=== PATIENT | male | born 1990 | race Hispanic/Latino ===

== ENCOUNTER 2019-01-30 15:30 | Inpatient (IN) | payer MEDICAID ==
[~2019-01-30] VITALS: Ht 165.1 cm; Wt 53.3 kg
[2019-01-30 16:24] LABS: BASOPHILS % (AUTO) 1.5 % (0.0-5.0); EOSINOPHILS % (AUTO) 1.9 % (0.0-8.0); HEMATOCRIT 37.8 % (42-54); LYMPHOCYTES % (AUTO) 22.2 % (21.0-51.0); MEAN CORPUSCULAR HEMOGLOBIN 28.3 pg (27.0-33.0); MEAN CORPUSCULAR HGB CONC 32.2 g/dL (32.0-36.0); MONOCYTES % (AUTO) 10.3 % (3.0-13.0); NEUTROPHILS % (AUTO) 64.1 % (40.0-77.0); NUCLEATED RED BLOOD CELLS 0.1 % (0.0-0.19); PLATELET COUNT (AUTO) 233 K/uL (130-400); RED BLOOD CELL COUNT(AUTO) 4.29 MIL/uL (4.50-6.20); RED CELL DISTRIBUTION WIDTH 20.8 % (11.0-15.5); WHITE BLOOD COUNT (AUTO) 4.9 K/uL (4.8-10.8)
[2019-01-30 16:34] LABS: CREATININE 3.9 mg/dL (0.5-1.5); POTASSIUM 3.1 mmol/L (3.5-5.1)
[2019-01-30 16:36] LABS: INR 1.46 (0.85-1.15); PARTIAL THROMBOPLASTIN TIME 33.4 SEC (26.3-35.5); PROTHROMBIN TIME 15.2 SEC (9.6-11.6)
[2019-01-30 16:38] LABS: ALBUMIN 3.2 g/dL (3.5-5.0); BILIRUBIN,TOTAL 2.8 mg/dL (0.2-1.0); TOTAL PROTEIN, SERUM 7.2 g/dL (6.0-8.3)
[2019-01-30 16:41] LABS: AMMONIA 43 umol/L (11-32); CREATINE KINASE, TOTAL 48 U/L (21-232); LIPASE 118 U/L (114-286)
[2019-01-30] MEDS ORDERED: HYDRALAZINE HCL 20 MG/ML VIAL IV PRN (20:30)
[2019-01-30] MEDS ORDERED: ONDANSETRON HCL 4 MG/2 ML VIAL IV PRN (20:30)
[2019-01-30] MEDS ORDERED: LACTULOSE 20 GM/30 ML UDCUP PO PRN (20:30)
[2019-01-30] MEDS ORDERED: ACETAMINOPHEN 325 MG TAB PO PRN ×2 (20:30)
[2019-01-30] MEDS ORDERED: MORPHINE SULFATE 2 MG/ML 1ML SYG IV PRN (20:30)
[2019-01-30] MEDS: FUROSEMIDE 10 MG/ML 2ML VIAL IV SCH (20:45)
[2019-01-30] MEDS ORDERED: FAMOTIDINE 20MG TAB 20 MG TAB ONE (21:39)
[2019-01-30] MEDS ORDERED: FUROSEMIDE 20 MG TABLET ONE (21:39)
[2019-01-30] MEDS ORDERED: IPRATROPIUM/ALBUTEROL SULFATE 3 ML SOLUTION IH ONE (22:07)
[2019-01-30] MEDS: IPRATROPIUM/ALBUTEROL SULFATE 3 ML SOLUTION IH SCH (23:15)
[2019-01-31] VITALS (7 sets, daily range): BP systolic 105–120; BP diastolic 70–89
[2019-01-31] MEDS ORDERED: CARV12.511 PO (02:13)
[2019-01-31] MEDS ORDERED: LEVO25TA54 PO (02:13)
[2019-01-31] MEDS ORDERED: FURO80TA3 PO (02:13)
[2019-01-31] MEDS ORDERED: TRAM50TA4 PO (02:13)
[2019-01-31] MEDS ORDERED: GLUCAGON 1MG KIT 1 MG ML IM PRN (02:45)
[2019-01-31] MEDS ORDERED: DEXTROSE 50%-WATER 50 ML DISP.SYRIN IV PRN (02:45)
[2019-01-31] MEDS: IPRATROPIUM/ALBUTEROL SULFATE 3 ML SOLUTION IH SCH (07:12)
[2019-01-31] MEDS: INSULIN HUMULIN R 100 UNIT/ML 3ML SQ SCH ×4 (07:30→21:00)
[2019-01-31] MEDS: FUROSEMIDE 10 MG/ML 2ML VIAL IV SCH ×2 (08:45→22:22)
[2019-01-31] MEDS: METOPROLOL TARTRATE 1 MG/ML 5ML VIAL IV SCH ×2 (08:48→10:44)
[2019-01-31] MEDS: LEVOTHYROXINE 25 MCG TABLET PO SCH ×2 (08:53→12:37)
[2019-01-31] MEDS: CARVEDILOL 12.5 MG TABLET PO SCH ×2 (08:55→21:08)
[2019-01-31] MEDS ORDERED: FUROSEMIDE 80 MG TABLET PO SCH (09:00)
[2019-01-31] MEDS ORDERED: ADENOSINE 3 MG/ML 2ML VIAL IV ONE (10:30)
[2019-01-31] MEDS ORDERED: METOPROLOL TARTRATE 1 MG/ML 5ML VIAL IV PRN (10:30)
[2019-01-31] MEDS ORDERED: ALBUMIN (HUMAN) 5% 250 ML IV ONE (10:42)
[2019-01-31] MEDS ORDERED: SODIUM CHLORIDE 0.9% 500ML 500 ML IV ONE (10:43)
[2019-01-31] MEDS ORDERED: IPRATROPIUM 0.5 MG/2.5 ML INH IH PRN ×2 (11:00→12:15)
[2019-01-31] MEDS ORDERED: POTASSIUM CHLORIDE 20 MEQ ERTAB PO SCH (11:00)
[2019-01-31] MEDS ORDERED: IPRATROPIUM 0.5 MG/2.5 ML INH IH SCH (12:00)
[2019-01-31] MEDS: FAMOTIDINE/PF 20 MG/2 ML VIAL IV SCH (12:38)
--- NOTE | 2019-01-31 15:15 | NUR ---
U/S GD PARACENTESIS PROCEDURE PERFORMED BY DR Bladimir TORRES. PUNCTURE SITE LLQ AND PATIENT TOLERATED PROCEDURE WELL. TOTAL REMOVED 2 LITERS OF [place] FLUID. END OF PROCEDURE AT 1455. CATHETER REMOVED AND DRESSING APPLIED. NO BLEEDING NOTED. REPORT GIVEN TO EMELIA FUENTES AND PATIENT TRANSPORTED TO [place] VIA W/C AT 1515. AAO X3 WITH NO C/O PAIN.
[2019-01-31 16:43] LABS: HEMATOCRIT 36.8 % (42-54); MEAN CORPUSCULAR HEMOGLOBIN 28.8 pg (27.0-33.0); NUCLEATED RED BLOOD CELLS 0.2 % (0.0-0.19); PLATELET COUNT (AUTO) 156 K/uL (130-400); RED BLOOD CELL COUNT(AUTO) 4.09 MIL/uL (4.50-6.20); WHITE BLOOD COUNT (AUTO) 3.7 K/uL (4.8-10.8)
[2019-01-31 16:57] LABS: CREATININE 5.9 mg/dL (0.5-1.5); PHOSPHORUS 4.8 mg/dL (2.5-4.9); POTASSIUM 4.1 mmol/L (3.5-5.1)
[2019-01-31 17:07] LABS: B-TYPE NATRIURETIC PEPTIDE > 5000 pg/mL (0-100)
[2019-01-31] MEDS: IPRATROPIUM 0.5 MG/2.5 ML INH IH SCH ×2 (18:32→23:29)
--- NOTE | 2019-01-31 19:45 | NUR ---
Received bedside report ,pt. S/P paracentesis.Dr. Goodrich was made aware of consult pending to see the pt. as per report.Dr. Goncalves saw the pt. today no intervention needed at this time and already signed off as per report.Pt. remained ST in the 120's.
[2019-01-31] MEDS: LACTULOSE 20 GM/30 ML UDCUP PO SCH (21:07)
--- NOTE | 2019-01-31 22:00 | NUR ---
Dr. Goodrich here and saw pt. he said pt. is okay to be dialyzed tomorrow.
[2019-02-01 03:00] VITALS: BP 97/65
[2019-02-01 03:49] LABS: HEMATOCRIT 36.3 % (42-54); MEAN CORPUSCULAR HGB CONC 32.6 g/dL (32.0-36.0); MEAN CORPUSCULAR VOLUME 88.8 fL (79-99); NUCLEATED RED BLOOD CELLS 0.2 % (0.0-0.19); PLATELET COUNT (AUTO) 153 K/uL (130-400); RED BLOOD CELL COUNT(AUTO) 4.09 MIL/uL (4.50-6.20); RED CELL DISTRIBUTION WIDTH 20.5 % (11.0-15.5); WHITE BLOOD COUNT (AUTO) 3.5 K/uL (4.8-10.8)
[2019-02-01 04:04] LABS: ALBUMIN 2.9 g/dL (3.5-5.0); BILIRUBIN,TOTAL 2.2 mg/dL (0.2-1.0); CREATININE 6.6 mg/dL (0.5-1.5); POTASSIUM 4.7 mmol/L (3.5-5.1); TOTAL PROTEIN, SERUM 6.4 g/dL (6.0-8.3)
[2019-02-01] MEDS: INSULIN HUMULIN R 100 UNIT/ML 3ML SQ SCH ×4 (06:27→21:00)
[2019-02-01] MEDS: IPRATROPIUM 0.5 MG/2.5 ML INH IH SCH ×4 (06:34→23:35)
[2019-02-01 07:25] VITALS: BP 118/76
[2019-02-01] MEDS: FUROSEMIDE 10 MG/ML 2ML VIAL IV SCH ×2 (08:17→20:57)
[2019-02-01] MEDS: FAMOTIDINE/PF 20 MG/2 ML VIAL IV SCH (08:17)
[2019-02-01] MEDS: LEVOTHYROXINE 25 MCG TABLET PO SCH (09:00)
[2019-02-01] MEDS: CARVEDILOL 12.5 MG TABLET PO SCH ×2 (09:00→20:58)
[2019-02-01] MEDS: LACTULOSE 20 GM/30 ML UDCUP PO SCH ×2 (09:00→21:00)
[2019-02-01 11:40] VITALS: BP 115/80
[2019-02-01] MEDS ORDERED: 0.9% SODIUM CHLORIDE 1000 ML IV BAG IV PRN (14:30)
[2019-02-01] MEDS ORDERED: SODIUM CHLORIDE 0.9% 1000ML 1,000 ML IV PRN (14:30)
[2019-02-01] MEDS ORDERED: ACETAMINOPHEN 325 MG TAB PO PRN (14:30)
[2019-02-01] MEDS ORDERED: HEPARIN SODIUM 5000UNIT/ML 1ML VIAL IJ PRN (14:30)
--- NOTE | 2019-02-01 14:43 | NUR ---
cm note met with patient and states resides athome with mother, pt able to do self adls, and ambulates per self , no dme. states sister trasnprots to HD 3 X wk. and states dc plan is back to same home setting. states no dc needs. Addendum: 02/01/19 at 1444 by AMALIA GIL CM Amended: Links added.
[2019-02-01 16:27] VITALS: BP 116/86
--- NOTE | 2019-02-01 18:10 | NUR ---
POST HD REPORT VS: BP:130-99 HR: 108 RR:17 TEMP:97.8F TYMPANIC FLUID REMOVED: 1L CENTRAL DRESSING CHANGED BY HD NURSE Addendum: 02/01/19 at 1811 by MARIANO SIMS RN RN Amended: Links added.
[2019-02-01 19:00] VITALS: BP 122/84
--- NOTE | 2019-02-01 20:00 | NUR ---
UPON ASSESSMENT, NOTED LEFT ARM FISTULA WITHOUT A BRUIT AND THRILL UPON AUSCULTATION. PT DOES HAVE A TEMPORARY DIALYSIS CATHETER TO THE RIGHT SIDE OF CHEST IN USE. WILL INFORM DR. ZELAYA UPON ROUNDS TOMORROW.
[2019-02-01] MEDS: GUAIFENESIN-CODEINE 5 ML SYRUP PO PRN (20:59)
[2019-02-01 23:00] VITALS: BP 94/58
[2019-02-02 03:00] VITALS: BP 88/53
[2019-02-02 03:45] LABS: BASOPHILS % (AUTO) 1.2 % (0.0-5.0); HEMATOCRIT 35.5 % (42-54); LYMPHOCYTES % (AUTO) 16.7 % (21.0-51.0); MEAN CORPUSCULAR HEMOGLOBIN 28.8 pg (27.0-33.0); MEAN CORPUSCULAR HGB CONC 31.8 g/dL (32.0-36.0); MEAN CORPUSCULAR VOLUME 90.4 fL (79-99); MONOCYTES % (AUTO) 14.5 % (3.0-13.0); NEUTROPHILS % (AUTO) 66.6 % (40.0-77.0); NUCLEATED RED BLOOD CELLS 0.4 % (0.0-0.19); PLATELET COUNT (AUTO) 138 K/uL (130-400); RED BLOOD CELL COUNT(AUTO) 3.93 MIL/uL (4.50-6.20); RED CELL DISTRIBUTION WIDTH 21.8 % (11.0-15.5); WHITE BLOOD COUNT (AUTO) 3.5 K/uL (4.8-10.8)
[2019-02-02 04:01] LABS: ALBUMIN 2.7 g/dL (3.5-5.0); BILIRUBIN,TOTAL 1.8 mg/dL (0.2-1.0); CREATININE 5.3 mg/dL (0.5-1.5); POTASSIUM 4.1 mmol/L (3.5-5.1); TOTAL PROTEIN, SERUM 6.2 g/dL (6.0-8.3)
[2019-02-02] MEDS: GUAIFENESIN-CODEINE 5 ML SYRUP PO PRN ×2 (06:13→21:55)
[2019-02-02] MEDS: INSULIN HUMULIN R 100 UNIT/ML 3ML SQ SCH ×4 (06:15→21:00)
[2019-02-02] MEDS: IPRATROPIUM 0.5 MG/2.5 ML INH IH SCH ×4 (07:21→23:57)
[2019-02-02 07:26] VITALS: BP 106/71
[2019-02-02] MEDS: FAMOTIDINE/PF 20 MG/2 ML VIAL IV SCH (08:41)
[2019-02-02] MEDS: FUROSEMIDE 10 MG/ML 2ML VIAL IV SCH ×2 (08:41→21:50)
[2019-02-02] MEDS: LACTULOSE 20 GM/30 ML UDCUP PO SCH ×2 (08:41→21:50)
[2019-02-02] MEDS: METOPROLOL TARTRATE 1 MG/ML 5ML VIAL IV SCH (08:41)
[2019-02-02] MEDS: LEVOTHYROXINE 25 MCG TABLET PO SCH (08:41)
[2019-02-02] MEDS: CARVEDILOL 12.5 MG TABLET PO SCH ×2 (08:41→21:50)
[2019-02-02 11:32] VITALS: BP 114/74
[2019-02-02 16:16] VITALS: BP 103/67
[2019-02-02 19:00] VITALS: BP 99/70
--- NOTE | 2019-02-02 19:30 | NUR ---
REPORTED TO DR. ZELAYA WHO IS ROUNDING AT THIS TIME THAT PATIENT'S LEFT ARM FISTULA DOES NOT HAVE BRUIT NOR THRILL. MD EXAMINED SITE AND SAID THAT ONCE PATIENT IS DISCHARGED, HE WILL SEND PATIENT TO DR. RUVALCABA.
[2019-02-02] MEDS ORDERED: BENZOCAINE/MENTH/CETYLPYRD CL 1 EACH LOZENGE MM PRN (20:00)
[2019-02-02 23:00] VITALS: BP 106/71
[2019-02-03 03:00] VITALS: BP 88/53
[2019-02-03] MEDS: INSULIN HUMULIN R 100 UNIT/ML 3ML SQ SCH ×4 (05:41→21:00)
[2019-02-03] MEDS: IPRATROPIUM 0.5 MG/2.5 ML INH IH SCH ×3 (06:19→19:49)
[2019-02-03 07:44] VITALS: BP 96/67
[2019-02-03] MEDS: FUROSEMIDE 10 MG/ML 2ML VIAL IV SCH ×2 (08:18→21:12)
[2019-02-03] MEDS: LACTULOSE 20 GM/30 ML UDCUP PO SCH ×2 (08:18→21:16)
[2019-02-03] MEDS: FAMOTIDINE/PF 20 MG/2 ML VIAL IV SCH (08:18)
[2019-02-03] MEDS: LEVOTHYROXINE 25 MCG TABLET PO SCH (08:19)
[2019-02-03] MEDS: METOPROLOL TARTRATE 1 MG/ML 5ML VIAL IV SCH (08:20)
[2019-02-03] MEDS: CARVEDILOL 12.5 MG TABLET PO SCH ×2 (09:00→21:12)
[2019-02-03 11:33] VITALS: BP 100/64
[2019-02-03 15:27] VITALS: BP 109/72
[2019-02-03 19:15] VITALS: BP 116/67
[2019-02-03] MEDS ORDERED: RENAL DOSE IV SCH (21:15)
[2019-02-03] MEDS ORDERED: LEVOFLOXACIN 500 MG/D5W 100 ML 100 ML IV SCH (21:15)
[2019-02-04] MEDS: SODIUM CHLORIDE 3% FOR INHALATION 4 ML/AMP VIAL.NEB IH SCH ×6 (00:18→23:42)
[2019-02-04 00:26] VITALS: BP 101/75
[2019-02-04 03:40] LABS: EOSINOPHILS % (AUTO) 3.7 % (0.0-8.0); HEMATOCRIT 36.8 % (42-54); LYMPHOCYTES % (AUTO) 17.7 % (21.0-51.0); MEAN CORPUSCULAR HEMOGLOBIN 28.7 pg (27.0-33.0); MEAN CORPUSCULAR HGB CONC 31.9 g/dL (32.0-36.0); MEAN CORPUSCULAR VOLUME 90.2 fL (79-99); MONOCYTES % (AUTO) 11.5 % (3.0-13.0); NEUTROPHILS % (AUTO) 66.1 % (40.0-77.0); NUCLEATED RED BLOOD CELLS 0.2 % (0.0-0.19); PLATELET COUNT (AUTO) 133 K/uL (130-400); RED BLOOD CELL COUNT(AUTO) 4.07 MIL/uL (4.50-6.20); RED CELL DISTRIBUTION WIDTH 21.1 % (11.0-15.5); WHITE BLOOD COUNT (AUTO) 4.1 K/uL (4.8-10.8)
[2019-02-04 03:50] VITALS: BP 106/74
[2019-02-04 03:58] LABS: ALBUMIN 2.7 g/dL (3.5-5.0); BILIRUBIN,DIRECT 1.1 mg/dL (0.0-0.3); BILIRUBIN,TOTAL 1.5 mg/dL (0.2-1.0); MAGNESIUM 2.2 mg/dL (1.80-2.40); PHOSPHORUS 8.5 mg/dL (2.5-4.9); POTASSIUM 5.4 mmol/L (3.5-5.1); TOTAL PROTEIN, SERUM 6.2 g/dL (6.0-8.3)
[2019-02-04 04:35] LABS: CREATININE 8.4 mg/dL (0.5-1.5)
[2019-02-04 05:26] LABS: INR 1.18 (0.85-1.15); PARTIAL THROMBOPLASTIN TIME 35.1 SEC (26.3-35.5); PROTHROMBIN TIME 12.4 SEC (9.6-11.6)
[2019-02-04] MEDS: INSULIN HUMULIN R 100 UNIT/ML 3ML SQ SCH ×4 (06:11→21:00)
[2019-02-04 07:51] VITALS: BP 104/70
[2019-02-04] MEDS: METOPROLOL TARTRATE 1 MG/ML 5ML VIAL IV SCH (07:59)
[2019-02-04] MEDS: LEVOTHYROXINE 25 MCG TABLET PO SCH (09:38)
[2019-02-04] MEDS: FAMOTIDINE/PF 20 MG/2 ML VIAL IV SCH (09:38)
[2019-02-04] MEDS: FUROSEMIDE 10 MG/ML 2ML VIAL IV SCH ×2 (09:38→20:22)
[2019-02-04] MEDS: LACTULOSE 20 GM/30 ML UDCUP PO SCH ×2 (09:39→20:22)
[2019-02-04] MEDS: CARVEDILOL 12.5 MG TABLET PO SCH ×2 (09:39→20:23)
[2019-02-04] MEDS ORDERED: ACETAMINOPHEN 325 MG TAB PO PRN (10:00)
[2019-02-04] MEDS ORDERED: HEPARIN SODIUM 5000UNIT/ML 1ML VIAL IJ PRN ×2 (10:00)
[2019-02-04] MEDS ORDERED: NITROGLYCERIN 0.4 MG SL TAB SL PRN (10:00)
[2019-02-04] MEDS ORDERED: 0.9% SODIUM CHLORIDE 1000 ML IV BAG IV PRN (10:00)
[2019-02-04] MEDS ORDERED: LIDOCAINE HCL-MPF 1% 2ML VIAL IJ PRN (10:00)
[2019-02-04] MEDS ORDERED: SODIUM CHLORIDE 0.9% 1000ML 1,000 ML IV PRN (10:00)
[2019-02-04 11:09] VITALS: BP 105/73
[2019-02-04 15:38] VITALS: BP 117/90
[2019-02-04 19:44] VITALS: BP 111/76
[2019-02-05] VITALS: BP 100/77
[2019-02-05 03:49] VITALS: BP 112/82
[2019-02-05] MEDS: INSULIN HUMULIN R 100 UNIT/ML 3ML SQ SCH ×3 (05:50→16:30)
[2019-02-05] MEDS: SODIUM CHLORIDE 3% FOR INHALATION 4 ML/AMP VIAL.NEB IH SCH ×3 (06:41→18:00)
[2019-02-05 08:09] VITALS: BP 116/68
[2019-02-05] MEDS ORDERED: PREDNISONE 10 MG TABLET PO SCH (09:00)
[2019-02-05] MEDS: LEVOTHYROXINE 25 MCG TABLET PO SCH (09:41)
[2019-02-05] MEDS: CARVEDILOL 12.5 MG TABLET PO SCH (09:41)
[2019-02-05] MEDS: FUROSEMIDE 10 MG/ML 2ML VIAL IV SCH (09:42)
[2019-02-05] MEDS: FAMOTIDINE/PF 20 MG/2 ML VIAL IV SCH (09:42)
[2019-02-05] MEDS: LACTULOSE 20 GM/30 ML UDCUP PO SCH (09:43)
[2019-02-05] MEDS: GUAIFENESIN-CODEINE 5 ML SYRUP PO PRN (09:57)
[2019-02-05] MEDS ORDERED: LEVO500T2 PO (10:44)
[2019-02-05] MEDS ORDERED: PRED20TA3 PO (10:44)
--- NOTE | 2019-02-05 11:17 | NUR ---
DR. MICHEL IN ROOM SPEAKING WITH PT. RE:PLAN OF CARE AND DISCHARGE DISPOSITION. QUESTIONS ANSWERED BY DR. MICHEL.
[2019-02-05 11:57] VITALS: BP 113/94
[2019-02-05 15:50] VITALS: BP 126/85
[2019-02-05] MEDS ORDERED: CARVEDILOL 12.5 MG TABLET PO SCH ×2 (16:00→21:00)
[2019-02-05] MEDS ORDERED: CARV25TA77 PO (16:36)
--- NOTE | 2019-02-05 18:30 | NUR ---
LATE ENTRY: HL REMOVED, CATHETER INTACT. DISCHARGE INSTRUCTIONS GIVEN TO PT., VERBALIZED UNDERSTANDING. PT.'S MOTHER WILL BE RIDE HOME AND WILL TAKE HIM HOME "AT MIDNIGHT BECAUSE SHE IS WORKING."
--- NOTE | 2019-02-05 19:40 | NUR ---
NOTIFIED DR. MICHEL, AT NURSE'S STATION, RE:PT. WAITING FOR RIDE HOME FOR DISCHARGE; VERBALIZED UNDERSTANDING.
[2019-02-05 22:33] VITALS: BP 110/82
[2019-02-06] MEDS: SODIUM CHLORIDE 3% FOR INHALATION 4 ML/AMP VIAL.NEB IH SCH (00:12)
[2019-02-06] MEDS ORDERED: LEVOFLOXACIN 500 MG TABLET PO SCH (09:00)
== END 2019-02-06 01:20 | disposition home or self-care (01) | DRG 466 ==
LOC: EDH 15:30 → EDHIP 15:31 → 4CH 01-31 00:48 → 2AH 01-31 15:47
PROVIDERS: ADMIT Internal Medicine; ATTEND Internal Medicine
PROC: 0W9G3ZZ Drainage of Peritoneal Cavity, Percutaneous Approach (ICD-10-PCS; 2019-01-31)
PROC: 5A1D70Z Performance of Urinary Filtration, Intermittent, Less than 6 Hours Per Day (ICD-10-PCS; principal; 2019-02-01)
PROC: 5A1D70Z Performance of Urinary Filtration, Intermittent, Less than 6 Hours Per Day (ICD-10-PCS; 2019-02-04)
DX: T82.590A Other mechanical complication of surgically created arteriovenous fistula, initial encounter (principal); N18.6 End stage renal disease; I13.2 Hypertensive heart and chronic kidney disease with heart failure and with stage 5 chronic kidney disease, or end stage renal disease; E11.22 Type 2 diabetes mellitus with diabetic chronic kidney disease; E87.8 Other disorders of electrolyte and fluid balance, not elsewhere classified; E44.0 Moderate protein-calorie malnutrition; R18.8 Other ascites; E87.1 Hypo-osmolality and hyponatremia; I47.1 Supraventricular tachycardia; Y83.8 Other surgical procedures as the cause of abnormal reaction of the patient, or of later complication, without mention of misadventure at the time of the procedure; Y92.89 Other specified places as the place of occurrence of the external cause; K74.60 Unspecified cirrhosis of liver; R16.0 Hepatomegaly, not elsewhere classified; I42.9 Cardiomyopathy, unspecified; K72.90 Hepatic failure, unspecified without coma; Z99.2 Dependence on renal dialysis; K80.20 Calculus of gallbladder without cholecystitis without obstruction; F10.10 Alcohol abuse, uncomplicated; I50.22 Chronic systolic (congestive) heart failure; Z68.1 Body mass index [BMI] 19.9 or less, adult; E87.6 Hypokalemia; I50.23 Acute on chronic systolic (congestive) heart failure; D64.9 Anemia, unspecified; E03.9 Hypothyroidism, unspecified; I25.10 Atherosclerotic heart disease of native coronary artery without angina pectoris; Z95.810 Presence of automatic (implantable) cardiac defibrillator
CPT/HCPCS: 36415; 49083; 71045; 71046; 76705; 80048; 80053; 80076; 82140; 82550; 82948; 83690; 83735; 83880; 84100; 84443; 85025; 85027; 85610; 85730; 87071; 87077; 87186; 87205; 87804; 90935; 93005; 93306; 94640; 94664; G0378; J0153; J1644; J1940; J1956; J3490; J7030; J7040; J7512; P9045

== ENCOUNTER → 2019-03-21 | Outpatient (CLI) | payer MEDICARE ==
[~2019-03-21] MED LIST: CARV25TA77 PO; FURO80TA3 PO; LEVO25TA54 PO; LEVO500T2 PO; PRED20TA3 PO; TRAM50TA4 PO
[2019-03-21 11:43] LABS: BASOPHILS % (AUTO) 1.1 % (0.0-5.0); EOSINOPHILS % (AUTO) 2.7 % (0.0-8.0); HEMATOCRIT 35.4 % (42-54); LYMPHOCYTES % (AUTO) 16.9 % (21.0-51.0); MEAN CORPUSCULAR HEMOGLOBIN 29.7 pg (27.0-33.0); MEAN CORPUSCULAR HGB CONC 32.1 g/dL (32.0-36.0); MEAN CORPUSCULAR VOLUME 92.7 fL (79-99); MONOCYTES % (AUTO) 12.8 % (3.0-13.0); NEUTROPHILS % (AUTO) 66.5 % (40.0-77.0); NUCLEATED RED BLOOD CELLS 0.2 % (0.0-0.19); PLATELET COUNT (AUTO) 209 K/uL (130-400); RED BLOOD CELL COUNT(AUTO) 3.82 MIL/uL (4.50-6.20); RED CELL DISTRIBUTION WIDTH 18.9 % (11.0-15.5); WHITE BLOOD COUNT (AUTO) 4.3 K/uL (4.8-10.8)
--- NOTE | 2019-03-21 11:45 | NUR ---
U/S GD PARACENTESIS ORDERED. US ABDOMEN PERFORMED. DR. RODRIGUEZ CONFIRMED PT DID NOT HAVE FLUID TO PERFORM THIS PROCEDURE. INSTRUCTED PT TO F/U WITH DR. PARKINSON FOR FURTHER ORDERS. DISCHARGE INSTRUCTIONS GIVEN TO PATIENT AND VERBALIZED UNDERSTANDING. DISCHARGED VIA AMBULATION AT 1200. AAO X3 WITH NO C/O PAIN.
[2019-03-21 11:59] LABS: CREATININE 5.8 mg/dL (0.5-1.5); POTASSIUM 3.8 mmol/L (3.5-5.1)
[2019-03-21 12:00] LABS: INR 1.2 (0.85-1.15); PROTHROMBIN TIME 12.6 SEC (9.6-11.6)
== END | disposition home or self-care (01) ==
LOC: RAH 11:06
PROVIDERS: ATTEND Internal Medicine Gastroenterology
DX: R18.8 Other ascites (principal); R94.5 Abnormal results of liver function studies
CPT/HCPCS: 36415; 76700; 80048; 85025; 85610